=== PATIENT | female | born 1955 | race African-American/Black ===

== ENCOUNTER 2018-10-30 17:25 | Observation (INO) | payer OTHER ==
[2018-10-30] MEDS ORDERED: ONDANSETRON 4 MG/2 ML VIAL ONE (18:38)
[2018-10-30] MEDS ORDERED: PANTOPRAZOLE 40 MG INJ ONE (18:38)
[2018-10-30] MEDS ORDERED: MORPHINE 2 MG/ML SYR ONE (18:38)
[2018-10-30 18:43] LABS: Absolute Lymphocytes (CBC) 1.2 K/uL (0.7-4.9); Absolute Monocytes 0.4 K/uL (0.1-1.3); Basophils % 0.9 % (0-1.3); Eosinophils % 1.6 % (0-4.4); Hematocrit 41.3 % (36.0-45.0); MPV 8.8 fL (7.6-11.3); Monocytes % 9.7 % (3.3-12.3); RBC Red Blood Cell Count 5.41 M/uL (3.86-4.86)
[2018-10-30 18:45] LABS: Protime INR 1.09
--- NOTE | 2018-10-30 19:03 | RAD REPORT ---
EXAM DESCRIPTION: RAD - Chest Single View - 10/30/2018 6:38 pm CLINICAL HISTORY: Cough, abdominal pain, abdominal distention COMPARISON: None. TECHNIQUE: AP portable chest image was obtained 1835 hours . FINDINGS: No focal lung parenchymal process. No failure or volume overload. Heart and vasculature ar e normal. No measurable pleural effusion and no pneumothorax. No acute bony abnormality seen. No acut e aortic findings suspected. IMPRESSION: No acute cardiopulmonary process.
[2018-10-30 19:05] LABS: ALT/SGPT 19 U/L (12-78); AST/SGOT 17 U/L (15-37); Albumin 3.7 g/dL (3.4-5.0); Alkaline Phosphatase 128 U/L (45-117); BUN Blood Urea Nitrogen 8 mg/dL (7-18); Bicarbonate 27 mmol/L (21-32); Bilirubin Direct 0.1 mg/dL (0-0.2); Bilirubin Total 0.6 mg/dL (0.2-1.0); Glucose Level 107 mg/dL (74-106); Lipase 75 U/L (73-393); Magnesium 1.8 mg/dL (1.8-2.4); NT PRO-BNP 38 pg/mL (<125); Potassium 3.9 mmol/L (3.5-5.1); Protein, Total 7.4 g/dL (6.4-8.2); Sodium Level 141 mmol/L (136-145); Troponin (Emerg Dept Use Only) < 0.02 ng/mL (0.0-0.045)
--- NOTE | 2018-10-30 19:21 | EDPHYS ---
Physician Documentation [facility] Name: Destiny Reddy Age: 63 yrs Sex: Female : 1955 Arrival Date: 10/30/2018 Time: 17:27 Bed 20 Private MD: ED Physician Ishan Clifford HPI: 10/30 18:15 This 63 yrs old Black Female presents to ER via Ambulatory with complaints of Abdominal candi Pain, Vomiting, Vision Problem. 18:15 The patient presents to the emergency department with nausea, vomiting, abdominal pain, candi of the epigastric area, right upper quadrant and left upper quadrant. Onset: The symptoms/episode began/occurred 3 day(s) ago. Possible causes: unknown. The symptoms are aggravated by nothing. The symptoms are alleviated by nothing. Associated signs and symptoms: The patient has no apparent associated signs or symptoms. Severity of symptoms: At their worst the symptoms were moderate in the emergency department the symptoms are unchanged. The patient has not experienced similar symptoms in the past. Historical: - Allergies: 17:35 No Known Allergies; ss - PMHx: 17:36 diabetes; PUD; ss - Immunization history:: Adult Immunizations up to date. - Social history:: Smoking status: Patient/guardian denies using tobacco. - Ebola Screening: : Patient denies exposure to infectious person Patient denies travel to an Ebola-affected area in the 21 days before illness onset. ROS: 18:15 Constitutional: Negative for fever, chills, and weight loss, Eyes: Negative for injury, candi pain, redness, and discharge, ENT: Negative for injury, pain, and discharge, Neck: Negative for injury, pain, and swelling, Cardiovascular: Negative for chest pain, palpitations, and edema, Respiratory: Negative for shortness of breath, cough, wheezing, and pleuritic chest pain, Back: Negative for injury and pain, : Negative for injury, bleeding, discharge, and swelling, MS/Extremity: Negative for injury and deformity, Skin: Negative for injury, rash, and discoloration, Neuro: Negative for headache, weakness, numbness, tingling, and seizure, Psych: Negative for depression, anxiety, suicide ideation, homicidal ideation, and hallucinations, Allergy/Immunology: Negative for hives, rash, and allergies, Endocrine: Negative for neck swelling, polydipsia, polyuria, polyphagia, and marked weight changes, Hematologic/Lymphatic: Negative for swollen nodes, abnormal bleeding, and unusual bruising. 18:15 Abdomen/GI: Positive for abdominal pain, of the epigastric area, right upper quadrant and left upper quadrant. Exam: 18:15 Constitutional: This is a well developed, well nourished patient who is awake, alert, candi and in no acute distress. Head/Face: Normocephalic, atraumatic. Eyes: Pupils equal round and reactive to light, extra-ocular motions intact. Lids and lashes normal. Conjunctiva and sclera are non-icteric and not injected. Cornea within normal limits. Periorbital areas with no swelling, redness, or edema. ENT: Nares patent. No nasal discharge, no septal abnormalities noted. Tympanic membranes are normal and external auditory canals are clear. Oropharynx with no redness, swelling, or masses, exudates, or evidence of obstruction, uvula midline. Mucous membranes moist. Neck: Trachea midline, no thyromegaly or masses palpated, and no cervical lymphadenopathy. Supple, full range of motion without nuchal rigidity, or vertebral point tenderness. No Meningismus. Chest/axilla: Normal chest wall appearance and motion. Nontender with no deformity. No lesions are appreciated. Cardiovascular: Regular rate and rhythm with a normal S1 and S2. No gallops, murmurs, or rubs. Normal PMI, no JVD. No pulse deficits. Respiratory: Lungs have equal breath sounds bilaterally, clear to auscultation and percussion. No rales, rhonchi or wheezes noted. No increased work of breathing, no retractions or nasal flaring. Back: No spinal tenderness. No costovertebral tenderness. Full range of motion. Female : Normal external genitalia. Skin: Warm, dry with normal turgor. Normal color with no rashes, no lesions, and no evidence of cellulitis. MS/ Extremity: Pulses equal, no cyanosis. Neurovascular intact. Full, normal range of motion. Neuro: Awake and alert, GCS 15, oriented to person, place, time, and situation. Cranial nerves II-XII grossly intact. Motor strength 5/5 in all extremities. Sensory grossly intact. Cerebellar exam normal. Normal gait. Psych: Awake, alert, with orientation to person, place and time. Behavior, mood, and affect are within normal limits. 18:15 Abdomen/GI: Inspection: abdomen appears normal, Bowel sounds: normal, Liver: no appreciated palpable abnormalities, Hernia: not appreciated. 19:12 Abdomen/GI: Rectal exam: is unremarkable, rectal tone normal, Stool: guaiac negative, candi hemorrhoid(s), are not appreciated, mass, is not appreciated, swelling, is not appreciated, tenderness, is not appreciated, net. Vital Signs: 17:35 Resp 16; Weight 55.79 kg; Height 5 ft. 7 in. (170.18 cm); Pain 9/10; ss 17:36 BP 123 / 87; Pulse 97; Temp 98.5; Pulse Ox 99% on R/A; ss 18:38 BP 146 / 78; Pulse 109; Resp 18; Pulse Ox 100% on R/A; hj 19:16 BP 160 / 73; Pulse 75; Resp 17 S; Pulse Ox 100% on R/A; jd3 20:58 BP 143 / 74; Pulse 74; Resp 18 S; Pulse Ox 100% on R/A; jd3 17:35 Body Mass Index 19.26 (55.79 kg, 170.18 cm) MDM: 17:51 Patient medically screened. [facility] 18:17 Data reviewed: vital signs, nurses notes, lab test result(s), EKG, radiologic studies, [facility] CT scan, plain films. 10/30 18:14 Order name: Basic Metabolic Panel; Complete Time: 19:06 [facility] 10/30 18:14 Order name: CBC with Diff; Complete Time: 19:06 [facility] 10/30 18:14 Order name: LFT's; Complete Time: 19:06 [facility] 10/30 18:14 Order name: Magnesium; Complete Time: 19:06 [facility] 10/30 18:14 Order name: NT PRO-BNP; Complete Time: 19:06 [facility] 10/30 18:14 Order name: PT-INR; Complete Time: 19:06 [facility] 10/30 18:14 Order name: Troponin (emerg Dept Use Only); Complete Time: 19:06 [facility] 10/30 18:14 Order name: Lipase; Complete Time: 19:06 [facility] 10/30 18:14 Order name: Urine Culture [facility] 10/30 19:50 Order name: Urine Dipstick--Ancillary (enter results); Complete Time: 20:31 ar5 10/30 19:50 Order name: Urine --Ancillary (enter results); Complete Time: 20:31 ar5 10/30 20:08 Order name: Basic Metabolic Panel EDMS 10/30 20:08 Order name: Basic Metabolic Panel EDMS 10/30 20:08 Order name: CBC with Automated Diff EDMS 10/30 18:14 Order name: XRAY Chest (1 view); Complete Time: 19:06 [facility] 10/30 18:14 Order name: CT Abd/Pelvis - W/Contrast: oral and iv; Complete Time: 20:31 candi 10/30 18:29 Order name: US Abdomen Limited [facility] 10/30 20:08 Order name: CBC with Automated Diff EDMS 10/30 20:08 Order name: Hemoglobin A1c EDMS 10/30 20:08 Order name: Hemoglobin A1c EDMS 10/30 20:08 Order name: Lipid Profile EDMS 10/30 20:08 Order name: Lipid Profile EDMS 10/30 20:08 Order name: Protime (+INR) EDMS 10/30 20:08 Order name: Protime (+INR) EDMS 10/30 20:08 Order name: PTT, Activated Partial Thromb EDMS 10/30 20:08 Order name: PTT, Activated Partial Thromb EDMS 10/30 18:14 Order name: EKG; Complete Time: 18:16 [facility] 10/30 18:14 Order name: Cardiac monitoring; Complete Time: 18:15 [facility] 10/30 18:14 Order name: EKG - Nurse/Tech; Complete Time: 18:48 [facility] 10/30 18:14 Order name: IV Saline Lock; Complete Time: 18:34 [facility] 10/30 18:14 Order name: Labs collected and sent; Complete Time: 18:34 [facility] 10/30 18:14 Order name: O2 Per Protocol; Complete Time: 18:16 [facility] 10/30 18:14 Order name: O2 Sat Monitoring; Complete Time: 18:16 [facility] 10/30 18:14 Order name: Urine Dipstick-Ancillary (obtain specimen); Complete Time: 19:44 [facility] 10/30 20:08 Order name: CONS Pharmacy Consult EDMS 10/30 20:08 Order name: CONS Physician Consult EDMS 10/30 20:08 Order name: EKG Electrocardiogram EDMS 10/30 20:08 Order name: EKG Electrocardiogram [facility] 10/30 20:08 Order name: EKG Electrocardiogram ED[facility] 10/30 20:08 Order name: EKG Electrocardiogram [facility] 10/30 20:08 Order name: EKG Electrocardiogram [facility] 10/30 20:08 Order name: EKG Electrocardiogram [facility] 10/30 20:08 Order name: EKG Electrocardiogram [facility] 10/30 20:08 Order name: EKG Electrocardiogram [facility] 10/30 20:08 Order name: EKG Electrocardiogram [facility] 10/30 20:08 Order name: EKG Electrocardiogram [facility] 10/30 20:08 Order name: EKG Electrocardiogram [facility] Administered Medications: 18:30 Drug: ProTONIX 40 mg Route: IVP; Site: left antecubital; hj 18:33 Follow up: Response: No adverse reaction hj 18:30 Drug: morphine 2 mg Route: IVP; Site: left antecubital; hj 18:33 Follow up: Response: No adverse reaction; Pain is decreased hj 18:30 Drug: Zofran 4 mg Route: IVP; Site: left antecubital; hj 18:34 Follow up: Response: No adverse reaction; Nausea is decreased hj 21:18 Not Given (Physician Discretion): morphine 2 mg IVP once jd3 Disposition: 10/30/18 19:20 Hospitalization ordered by Capri Molina for Observation. Preliminary diagnosis are Abdominal tenderness, Peptic ulcer, site unspecified, Vomiting. - Bed requested for Telemetry/MedSurg (Inpatient). - Status is Observation. jd3 - Condition is Fair. - Problem is new. - Symptoms have improved. UTI on Admission? No Signatures: Dispatcher [employer] EDHI Ishan Clifford MD MD cha Smirch, Shelby RN PATRICA Dipak Anthony PA PA [id number] Christopher Lafleur RN RN hj Garcia, Cindy, RN RN Escobar Coyne RN RN jd3 Corrections: (The following items were deleted from the chart) 20:39 19:20 Hospitalization Ordered by Capri Molina MD for Observation. Preliminary cg diagnosis is Abdominal tenderness; Peptic ulcer, site unspecified; Vomiting. Bed requested for Telemetry/MedSurg (Inpatient). Status is Observation. Condition is Fair. Problem is new. Symptoms have improved. UTI on Admission? No. candi 21:47 20:39 10/30/2018 19:20 Hospitalization Ordered by Capri Molina MD for Observation. jd3 Preliminary diagnosis is Abdominal tenderness; Peptic ulcer, site unspecified; Vomiting. Bed requested for Telemetry/MedSurg (Inpatient). Status is Observation. Condition is Fair. Problem is new. Symptoms have improved. UTI on Admission? No. cg
--- NOTE | 2018-10-30 19:21 | ER ---
Nurse's Notes [facility] Name: Destiny Reddy Age: 63 yrs Sex: Female : 1955 Arrival Date: 10/30/2018 Time: 17:27 Bed 20 Private MD: Diagnosis: Abdominal tenderness;Peptic ulcer, site unspecified;Vomiting Presentation: 10/30 17:31 Presenting complaint: Patient states: upper abd pain that began in July after being ss diagnosed with a stomach ulcer. N/V that began 10/27/2018. Pt reports she ate stew last Tuesday and it seemed to aggravate her symptoms. Pt was seen in ER at [place] for the same symptoms and gave her medication, but it doesn't seem to be helping. Transition of care: patient was not received from another setting of care. Onset of symptoms was July 2018. Risk Assessment: Do you want to hurt yourself or someone else? Patient reports no desire to harm self or others. Initial Sepsis Screen: Does the patient meet any 2 criteria? No. Patient's initial sepsis screen is negative. Does the patient have a suspected source of infection? No. Patient's initial sepsis screen is negative. Care prior to arrival: None. 17:31 Method Of Arrival: Ambulatory ss 17:31 Acuity: YISEL 3 ss Triage Assessment: 17:39 General: Appears in no apparent distress. uncomfortable, Behavior is calm, cooperative, hj appropriate for age. Pain: Complains of pain in abdomen. GI: Reports upper abdominal pain, nausea, vomiting. Historical: - Allergies: 17:35 No Known Allergies; ss - PMHx: 17:36 diabetes; PUD; ss - Immunization history:: Adult Immunizations up to date. - Social history:: Smoking status: Patient/guardian denies using tobacco. - Ebola Screening: : Patient denies exposure to infectious person Patient denies travel to an Ebola-affected area in the 21 days before illness onset. Screenin:39 Abuse screen: Denies threats or abuse. Denies injuries from another. Nutritional hj screening: No deficits noted. Tuberculosis screening: No symptoms or risk factors identified. Fall Risk None identified. Assessment: 17:39 GI: Bowel sounds present X 4 quads. Abd is soft and non tender. hj 17:39 General: Appears in no apparent distress. uncomfortable, Behavior is calm, cooperative, hj appropriate for age. Pain: Complains of pain in abdomen. Neuro: Level of Consciousness is awake, alert, obeys commands, Oriented to person, place, time, situation, Appropriate for age. Cardiovascular: Capillary refill < 3 seconds Patient's skin is warm and dry. Respiratory: Airway is patent Respiratory effort is even, unlabored, Respiratory pattern is regular, symmetrical. : No signs and/or symptoms were reported regarding the genitourinary system. EENT: No signs and/or symptoms were reported regarding the EENT system. Derm: No signs and/or symptoms reported regarding the dermatologic system. Musculoskeletal: No signs and/or symptoms reported regarding the musculoskeletal system. 18:37 Reassessment: Patient and/or family updated on plan of care and expected duration. Pain hj level reassessed. Patient is alert, oriented x 3, equal unlabored respirations, skin warm/dry/pink. awaiting results and POC: family in room;. 18:52 Reassessment: called CAT scan 183; left a voicemail; pt finished contrast;. hj 19:14 Reassessment: Patient appears in no apparent distress at this time. Patient and/or jd3 family updated on plan of care and expected duration. Pain level reassessed. Patient is alert, oriented x 3, equal unlabored respirations, skin warm/dry/pink. Patient states feeling better. General: Appears in no apparent distress. comfortable, Behavior is calm, cooperative, appropriate for age. Pain: Denies pain. Neuro: Level of Consciousness is awake, alert, obeys commands, Oriented to person, place, time, situation, Appropriate for age. Cardiovascular: Capillary refill < 3 seconds Patient's skin is warm and dry. Respiratory: Airway is patent Respiratory effort is even, unlabored, Respiratory pattern is regular, symmetrical. GI: Abdomen is non-distended, Reports tolerance of fluids. 20:57 Reassessment: Patient appears in no apparent distress at this time. Patient and/or jd3 family updated on plan of care and expected duration. Pain level reassessed. Patient is alert, oriented x 3, equal unlabored respirations, skin warm/dry/pink. 21:46 Reassessment: Patient appears in no apparent distress at this time. Patient and/or jd3 family updated on plan of care and expected duration. Pain level reassessed. Patient is alert, oriented x 3, equal unlabored respirations, skin warm/dry/pink. Vital Signs: 17:35 Resp 16; Weight 55.79 kg; Height 5 ft. 7 in. (170.18 cm); Pain 9/10; ss 17:36 BP 123 / 87; Pulse 97; Temp 98.5; Pulse Ox 99% on R/A; ss 18:38 BP 146 / 78; Pulse 109; Resp 18; Pulse Ox 100% on R/A; hj 19:16 BP 160 / 73; Pulse 75; Resp 17 S; Pulse Ox 100% on R/A; jd3 20:58 BP 143 / 74; Pulse 74; Resp 18 S; Pulse Ox 100% on R/A; jd3 17:35 Body Mass Index 19.26 (55.79 kg, 170.18 cm) ED Course: 17:27 Patient arrived in ED. mr 17:34 Triage completed. ss 17:35 Arm band placed on right wrist. ss 17:38 Christopher Lafleur, PATRICA is Primary Nurse. hj 17:40 Patient has correct armband on for positive identification. Placed in gown. Bed in low hj position. Call light in reach. Side rails up X 1. Adult w/ patient. 17:51 Ishan Clifford MD is Attending Physician. candi 18:30 Initial lab(s) drawn, by ne, sent to lab. Inserted saline lock: 22 gauge in left hj antecubital area, using aseptic technique. Blood collected. 18:39 XRAY Chest (1 view) In Process Unspecified. EDMS 19:06 EKG done, by ED staff, reviewed by Ishan Clifford MD. mb4 19:19 Capri Molina MD is Hospitalizing Provider. candi 19:53 US Abdomen Limited In Process Unspecified. EDMS 20:00 CT Abd/Pelvis - W/Contrast: oral and iv In Process Unspecified. EDMS 21:19 No provider procedures requiring assistance completed. Patient admitted, IV remains in jd3 place. Administered Medications: 18:30 Drug: ProTONIX 40 mg Route: IVP; Site: left antecubital; hj 18:33 Follow up: Response: No adverse reaction hj 18:30 Drug: morphine 2 mg Route: IVP; Site: left antecubital; hj 18:33 Follow up: Response: No adverse reaction; Pain is decreased hj 18:30 Drug: Zofran 4 mg Route: IVP; Site: left antecubital; hj 18:34 Follow up: Response: No adverse reaction; Nausea is decreased hj 21:18 Not Given (Physician Discretion): morphine 2 mg IVP once jd3 Outcome: 19:20 Decision to Hospitalize by Provider. candi 21:19 Admitted to Med/surg accompanied by tech, via wheelchair, room 427, with chart, Report jd3 called to Anibal BURCIAGA 21:19 Condition: stable 21:19 Instructed on the need for admit, Demonstrated understanding of instructions. 21:47 Patient left the ED. jd3 Signatures: Dispatcher [employer] EDMS Ishan Clifford MD MD cha Rivera, Mary mr Rashida Velarde RN RN ss Joaquin, Henry, RN RN hj Davies, Jonathon, RN RN jd3 Baxter, Mackenzie mb4
[2018-10-30 19:54] LABS: Urine Blood NEGATIVE (NEG); Urine Glucose NEGATIVE (NEG); Urine Protein NEGATIVE (NEG); Urine pH 5.5 (5.0-7.0)
[2018-10-30] MEDS ORDERED: ACETAMINOPHEN 500 MG TAB PO PRN (20:03)
[2018-10-30] MEDS ORDERED: MORPHINE 2 MG/ML SYR IV PRN (20:03)
[2018-10-30] MEDS ORDERED: ONDANSETRON 4 MG/2 ML VIAL IV PRN (20:03)
--- NOTE | 2018-10-30 20:25 | RAD REPORT ---
EXAM DESCRIPTION: CT - Abdomen Pelvis W Contrast - 10/30/2018 8:00 pm CLINICAL HISTORY: Upper abdominal pain, history of gastric ulcer COMPARISON: None. TECHNIQUE: Biphasic, helical CT imaging of the abdomen and pelvis was performed following 100 ml non -ionic IV contrast. Oral contrast was given. All CT scans are performed using dose optimization technique as appropriate and may include automated exposure control or mA/KV adjustment according to patient size. FINDINGS: No suspicious findings in the lung bases. The liver, spleen, and pancreas show no suspicious findings. Cholecystectomy clips are present. No bi liary tree dilatation. Symmetric renal function is seen with no hydronephrosis or suspicious renal mass. No pyelonephritis o r acute parenchymal process. No bladder abnormalities. No adrenal abnormalities. Posterior left devia yanely uterus is present with significant lobulation. Multiple uterine fibroids are present up to 2.5 cm in size. At least 1 is submucosal in location. No ovarian mass or suspicious adnexal finding. No gastric dilatation or gastric wall thickening. No gastric outlet obstruction. No dilation of the l arge or small bowel. No acute GI process seen. No free air, free fluid or inflammatory stranding. N o mass or bulky lymphadenopathy. No omental thickening. Upper abdominal ventral hernia is present 5 c m in diameter. Neck of the hernia is 15 mm. This contains only fat. There is an additional periumbili jas fat only hernia 2.5 cm in diameter with a 2.5 centimeter neck. No acute bone finding. Degenerative changes are present. No acute vascular finding. IMPRESSION: No obstruction, free air or surgically emergent finding. Patient gives gastric ulcer history. On CT imaging no gastric abnormality identifiable. A 5 centimeter upper abdominal midline ventral hernia is present containing only fat. An additional 2.5 centimeter periumbilical fat only hernia present. Multi fibroid uterus.
[2018-10-30] MEDS: PANTOPRAZOLE 40 MG INJ IVP SCH (21:00)
[2018-10-30] MEDS ORDERED: NA CHLORIDE 0.9% 250 ML IV SCH (21:00)
[2018-10-30] MEDS: NA CHLORIDE 0.9% 1,000 ML IV SCH (23:12)
[2018-10-30 23:24] VITALS: BMI 19.1
[2018-10-31 04:35] LABS: Protime INR 1.04
[2018-10-31 04:40] LABS: Absolute Lymphocytes (CBC) 1.4 K/uL (0.7-4.9); Absolute Monocytes 0.2 K/uL (0.1-1.3); Absolute Neutrophil 1.9 K/uL (1.8-8.0); Basophils % 0.6 % (0-1.3); Eosinophils % 2.3 % (0-4.4); Hematocrit 42.5 % (36.0-45.0); Lymphocytes % 37.7 % (15.3-44.8); Monocytes % 6.8 % (3.3-12.3)
[2018-10-31 04:51] LABS: Potassium 3.9 mmol/L (3.5-5.1)
--- NOTE | 2018-10-31 07:19 | RAD REPORT ---
EXAM DESCRIPTION: US - Abdomen Exam Limited - 10/30/2018 7:55 pm CLINICAL HISTORY: Abdominal pain COMPARISON: None. FINDINGS: Gallbladder was not identifiable on the examination. It is uncertain if the gallbladder ma y be surgically absent. If this cannot be confirmed by history, CT imaging could be performed as iliana anted. No common duct stone or biliary tree dilatation identified. IMPRESSION: No biliary tree abnormality. Gallbladder was not identifiable and may be surgically absent.
[2018-10-31] MEDS: NA CHLORIDE 0.9% 1,000 ML IV SCH (08:09)
[2018-10-31] MEDS: PANTOPRAZOLE 40 MG INJ IVP SCH ×2 (08:09→20:11)
--- NOTE | 2018-10-31 08:43 | P.HP ---
Certification for Inpatient Patient admitted to: Observation With expected LOS: <2 Midnights Patient will require the following post-hospital care: None Practitioner: I am a practitioner with admitting privileges, knowledge of patient current condition, hospital course, and medical plan of care. Services: Services provided to patient in accordance with Admission requirements found in Title 42 Section 412.3 of the Code of Federal Regulations Patient History Date of Service: 10/30/18 Reason for admission: intractable nausea and vomiting; abdominal pain History of Present Illness: Patient is a 63-year-old female who comes into the hospital with abdominal discomfort mainly in the bilateral lower quadrants. She also has some tenderness in the left upper quadrant. She was seen in another facility a couple weeks ago with similar complaints. She was admitted to the hospital at that time but her workup was unremarkable except for the fact that she was told she had gastric ulcer disease. She does not remember getting an endoscopy. Since leaving the hospital she has continued to have intractable nausea and vomiting along with the abdominal discomfort. However, it got much worse yesterday and she decided to come into the emergency room today. She has lost a significant amount of weight according to her family. She does not have an appetite and cannot hold much of anything down. She had a CT scan which did not reveal any GI issues except nonobstructive hernias. She does have a uterine fibroid. ER physician spoke with GI and they will keep patient NPO for possible upper endoscopy. Continue on PPI as well. Allergies No Known Allergies Allergy (Verified 10/30/18 22:03) Home Medications: Insulin -Regular Human [Novolin -R*] 10 unit SQ BID 10/30/18 Metformin HCl [Glucophage*] 500 mg PO BID 10/30/18 - Past Medical/Surgical History Has patient received pneumonia vaccine in the past: No Diabetic: Yes -: HTN -: DM (Diagnosed Jun 2018) -: PUD Past Surgical History: Patient denies surgical history - Family History Father Family History: Reviewed- Non-Contributory - Social History Smoking Status: Never smoker Alcohol use: No CD- Drugs: No Caffeine use: No Place of Residence: Home Review of Systems 10-point ROS is otherwise unremarkable Physical Examination - Vital Signs Temperature: 97.5 F Blood Pressure: 128/60 Pulse: 74 Respirations: 18 Pulse Ox (%): 100 - Physical Exam General: Alert, In no apparent distress, Oriented x3 HEENT: Atraumatic, PERRLA, Mucous membr. moist/pink, EOMI, Sclerae nonicteric Neck: Supple, 2+ carotid pulse no bruit, No LAD, Without JVD or thyroid abnormality Respiratory: Clear to auscultation bilaterally, Normal air movement Cardiovascular: Regular rate/rhythm, Normal S1 S2, No murmurs Gastrointestinal: Normal bowel sounds, Soft and benign, Non-distended, Tenderness Musculoskeletal: No tenderness Integumentary: No rashes Neurological: Normal gait, Normal speech, Normal strength at 5/5 x4 extr, Normal tone, Sensation intact, Cranial nerves 3-12 intact, Normal affect Lymphatics: No axilla or inguinal lymphadenopathy - Studies Laboratory Data (last 24 hrs) 10/30/18 18:30: PT 12.8 H, INR 1.09 10/30/18 18:30: WBC 3.7 L, Hgb 13.7, Hct 41.3, Plt Count 214 10/30/18 18:30: Sodium 141, Potassium 3.9, BUN 8, Creatinine 0.88, Glucose 107 H , Magnesium 1.8, Total Bilirubin 0.6, AST 17, ALT 19, Alkaline Phosphatase 128 H , Lipase 75 Assessment & Plan - Problems (Diagnosis) (1) Abdominal pain Current Visit: Yes Status: Acute (2) Intractable nausea and vomiting Current Visit: Yes Status: Acute (3) Weight loss Current Visit: Yes Status: Acute (4) Abdominal hernia Current Visit: Yes Status: Acute - Plan Plan: 1. IV hydration 2. GI consultation 3. PPI 4. Monitor electrolytes 5. Antiemetics as well as medication for pain control 6. NPO after midnight for possible upper endoscopy 7. GI and DVT prophylaxis Discharge Plan: Home Plan to discharge in: 24 Hours - Advance Directives Does patient have a Living Will: No Does patient have a Durable POA for Healthcare: No - Code Status/Comfort Care Code Status Assessed: Yes Code Status: Full Code Critical Care: No Time Spent Managing PTS Care (In Minutes): 45
--- NOTE | 2018-10-31 14:21 | P.PN ---
Subjective Date of Service: 10/31/18 Chief Complaint: intractable nausea and vomiting; abdominal pain Patient seen and examined at bedside with RN. Chart reviewed. Patient states that she has some mild improvement in her nausea vomiting however abdominal pain still continues. GI evaluation is pending at this time. Review of Systems 10-point ROS is otherwise unremarkable Physical Examination - Vital Signs Temperature: 97.6 F Blood Pressure: 198/84 Pulse: 85 Respirations: 16 Pulse Ox (%): 98 - Physical Exam General: Alert, In no apparent distress HEENT: Atraumatic, PERRLA, EOMI Neck: Supple, JVD not distended Respiratory: Clear to auscultation bilaterally, Normal air movement Cardiovascular: Regular rate/rhythm, Normal S1 S2 Gastrointestinal: Normal bowel sounds, No tenderness Musculoskeletal: No tenderness Integumentary: No rashes Neurological: Normal speech, Normal tone, Normal affect Lymphatics: No axilla or inguinal lymphadenopathy - Studies Laboratory Data (last 24 hrs) 10/30/18 18:30: PT 12.8 H, INR 1.09 10/30/18 18:30: WBC 3.7 L, Hgb 13.7, Hct 41.3, Plt Count 214 10/30/18 18:30: Sodium 141, Potassium 3.9, BUN 8, Creatinine 0.88, Glucose 107 H , Magnesium 1.8, Total Bilirubin 0.6, AST 17, ALT 19, Alkaline Phosphatase 128 H , Lipase 75 Medications List Reviewed: Yes Assessment And Plan - Current Problems (Diagnosis) (1) Abdominal pain Current Visit: Yes Status: Acute Plan: Epigastric abdominal pain. With intractable nausea and vomiting. Unknown etiology at this time. -recently discharged from another tertiary center with extensive workup all negative for any acute abnormality. Patient still continues with intractable nausea vomiting. -GI consulted. Pending evaluation at this time -possible EGD at this time. Will continue with NPO -abdominal CT negative for any acute abnormality along with ultrasound negative for any abnormality as well Qualifiers: Abdominal location: epigastric Qualified Code(s): R10.13 - Epigastric pain (2) Intractable nausea and vomiting Current Visit: Yes Status: Acute Plan: Continuous intractable nausea and vomiting. -slightly improved today. Currently NPO for possible GI procedure -GI consult pending at this time. -IV Zofran p.r.n. Qualifiers: Vomiting type: unspecified Qualified Code(s): R11.2 - Nausea with vomiting , unspecified (3) Weight loss Current Visit: Yes Status: Chronic - Plan Pending improvement at this time. Will continue to monitor closely. Will continue with IV Zofran for intractable nausea vomiting and await GI consultation. Discharge Plan: Home Plan to discharge in: 48 Hours - Code Status/Comfort Care Code Status Assessed: Yes Critical Care: No
--- NOTE | 2018-10-31 18:28 | EKG ---
Test Date: 2018-10-30 Test Time: 18:51:28 Ore Trimmer: SG MEASUREMENT RESULTS: Intervals: Rate: 74 ID: [id number] QRSD: 90 QT: 396 QTc: 439 Naylor: P: 43 ID: [id number] QRS: 76 T: 64 INTERPRETIVE STATEMENTS: Normal sinus rhythm Normal ECG No previous ECG available for comparison Electronically Signed On 10-31-18 18:24:08 CDT by Willie Bowman
[2018-11-01] MEDS: PANTOPRAZOLE 40 MG INJ IVP SCH (08:14)
[2018-11-01 09:34] VITALS: O2SAT 99
--- NOTE | 2018-11-01 10:02 | RAD REPORT ---
EXAM DESCRIPTION: NM - Gastric Emptying Study - 11/01/2018 9:13 am CLINICAL HISTORY: Diabetic Gastropresis COMPARISON: None. TECHNIQUE: The patient was administered approximately 1 mCi Tc 99m sulfur colloid in solid egg meal. Imaging of the left upper quadrant was performed with time/activity curve generated. FINDINGS: The half-time gastric emptying equals 63 minutes. Normal value(45 minutes to 110 minutes ) Lag phase duration 13 minutes Retention at 120 minutes = 5 % IMPRESSION: Normal half-time gastric emptying of 63 minutes
[2018-11-01 10:11] VITALS: BP 149/69; TEMP 97.1
--- NOTE | 2018-11-01 10:40 | EKG ---
Test Date: 2018-10-31 Test Time: 23:30:56 Try On Baster: RT Esquivel MEASUREMENT RESULTS: Intervals: Rate: 77 OK: 114 QRSD: 82 QT: 396 QTc: 448 Mchenry: P: 16 OK: 114 QRS: 74 T: 40 INTERPRETIVE STATEMENTS: Normal sinus rhythm Nonspecific ST abnormality Abnormal ECG Compared to ECG 10/30/2018 18:51:28 ST (T wave) deviation now present Electronically Signed On 11-01-18 10:39:07 CDT by Nikko Nelson
--- NOTE | 2018-11-01 12:49 | P.SSS ---
Patient History Date of Service: 11/01/18 Reason for admission: intractable nausea and vomiting; abdominal pain History of Present Illness: Patient is a 63-year-old female who comes into the hospital with abdominal discomfort mainly in the bilateral lower quadrants. She also has some tenderness in the left upper quadrant. She was seen in another facility a couple weeks ago with similar complaints. She was admitted to the hospital at that time but her workup was unremarkable except for the fact that she was told she had gastric ulcer disease. She does not remember getting an endoscopy. Since leaving the hospital she has continued to have intractable nausea and vomiting along with the abdominal discomfort. However, it got much worse yesterday and she decided to come into the emergency room today. She has lost a significant amount of weight according to her family. She does not have an appetite and cannot hold much of anything down. She had a CT scan which did not reveal any GI issues except nonobstructive hernias. She does have a uterine fibroid. ER physician spoke with GI and they will keep patient NPO for possible upper endoscopy. Continue on PPI as well. Allergies Allergies No Known Allergies Allergy (Verified 10/30/18 22:03) Home Medications: Insulin -Regular Human [Novolin -R*] 10 unit SQ BID 10/30/18 Metformin HCl [Glucophage*] 500 mg PO BID 10/30/18 Metoclopramide HCl [Reglan] 5 mg PO Q8H PRN #15 tablet 11/01/18 Pantoprazole Sodium [Protonix] 20 mg PO DAILY #30 tablet. 11/01/18 - Past Medical/Surgical History Has patient received pneumonia vaccine in the past: No Diabetic: Yes -: HTN -: DM (Diagnosed Jun 2018) -: PUD - Social History Smoking Status: Never smoker Alcohol use: No CD- Drugs: No Caffeine use: No Place of Residence: Home Review of Systems 10-point ROS is otherwise unremarkable Physical Examination - Vital Signs Temperature: 97.1 F Blood Pressure: 149/69 Pulse: 82 Respirations: 18 Pulse Ox (%): 100 - Physical Exam General: Alert, In no apparent distress HEENT: Atraumatic, PERRLA, Mucous membr. moist/pink, EOMI, Sclerae nonicteric Neck: Supple, 2+ carotid pulse no bruit, No LAD, Without JVD or thyroid abnormality Respiratory: Clear to auscultation bilaterally, Normal air movement Cardiovascular: Regular rate/rhythm, Normal S1 S2 Gastrointestinal: Normal bowel sounds, No tenderness Musculoskeletal: No tenderness Integumentary: No rashes Neurological: Normal gait, Normal speech, Normal strength at 5/5 x4 extr, Normal tone, Normal affect Lymphatics: No axilla or inguinal lymphadenopathy - Studies Microbiology Data (last 24 hrs): 10/30/18 19:42 Clean Catch Urine [place] Count - Final BETWEEN 10,000 & 100,000 CFU/ML 10/30/18 19:42 Clean Catch Urine - Final - Diagnosis (Problem(s)) (1) Abdominal pain Current Visit: Yes Status: Acute Qualifiers: Abdominal location: epigastric Qualified Code(s): R10.13 - Epigastric pain (2) Intractable nausea and vomiting Current Visit: Yes Status: Acute Qualifiers: Vomiting type: unspecified Qualified Code(s): R11.2 - Nausea with vomiting , unspecified (3) Weight loss Current Visit: Yes Status: Chronic Treatment Summary: Overall during the hospital stay patient remained stable Patient was initially admitted to the hospital for abdominal pain intractable nausea and vomiting. Patient has a history of diabetic mellitus and she takes her medication however does seem to be uncontrolled at times per patient. At the time patient had gastric emptying starting down. GI was consulted. GI is recommendation patient most likely has diabetic gastroparesis. Patient's nausea and vomiting does resolve while here in the hospital after she was started on Zofran. Gastric emptying study showed might be delayed gastric emptying. Patient at that time was advanced to a full liquid diet and was started on Protonix. Patient again had marked improvement in her symptoms. At which time she was advanced to a GI soft diet. Patient tolerated GI soft well and thus was discharged home under stable condition was asked to follow up with her primary care provider and GI doctor in about 1-2 days post discharge. Patient also encouraging educated extensively regarding diet and exercise for diabetic control to help her symptoms. Patient demonstrate understanding and thus was discharged home under stable condition. - Disposition Disposition: ROUTINE DISCHARGE Condition: GOOD Patient Discharge Instructions: Please f.u with PCP and GI in 1 to 2 week post discharge. New medication. Reglan 5mg q8h prn. Protonix 20mg daily. You were diagnosed with Diabetic Gastroperesis Diet: Regular Activity: Ad perry
== END 2018-11-01 14:25 | disposition home or self-care (01) ==
LOC: ER 17:25 → 4TH 21:22
PROVIDERS: ADMIT Hospitalist; ATTEND Hospitalist
DX: R10.9 Unspecified abdominal pain (principal); R11.2 Nausea with vomiting, unspecified; R63.4 Abnormal weight loss; Z68.1 Body mass index [BMI] 19.9 or less, adult; K46.9 Unspecified abdominal hernia without obstruction or gangrene; I10 Essential (primary) hypertension; E11.9 Type 2 diabetes mellitus without complications
CPT/HCPCS: 93005 ×2; 87088; 85025 ×2; 87086; 80048 ×2; 36415; 83735; 81025; 85610 ×2; 80061; 82962 ×6; 80076; 85730; 81003; 83036; 84484; 83690; 83880; 74177; 71045; 76705; 94760 ×4; 78264; 96375; 96374; 99285; Q9967; C9113 ×4; J2270; J7030 ×2; J2405; A9541; G0378 ×2